=== PATIENT | male | born 1980 | race Caucasian/White ===

== ENCOUNTER 2017-12-05 12:15 | Emergency (ER) | payer SELFPAY ==
[~2017-12-05] VITALS: Ht 180.3 cm; Wt 101.9 kg
[~2017-12-05 12:15] MED LIST: AMOX875 PO; MEDR4PAK3 PO
[2017-12-05 12:20] VITALS: BP 151/78; PULSE 86; RESP 16; TEMP 97.7; O2SAT 97
--- NOTE | 2017-12-05 13:08 | RADRPT ---
EXAM DATE/TIME: 12/05/2017 12:53 [place] COMPARISON: No previous studies available for comparison. INDICATIONS : Left hand 5th digit pain, punched something last night. MEDICAL HISTORY : None. SURGICAL HISTORY : None. ENCOUNTER: Initial ACUITY: 2 days PAIN SCORE: 7/10 LOCATION: Left hand 5th digit FINDINGS: AP, lateral and oblique views left hand were obtained and demonstrate a transverse fracture deformity of the fifth metacarpal neck with mild volar angulation of the distal fracture fragment. There is mi ld overlying soft tissue swelling. No other bony abnormalities are identified. CONCLUSION: Fifth metacarpal fracture. Robert Isbell MD on December 05, 2017 at 13:05 Board Certified Radiologist. This report was verified electronically.
[2017-12-05] MEDS ORDERED: TRAM50 PO (13:26)
--- NOTE | 2017-12-05 13:26 | PD ---
HPI Chief Complaint: Musculoskeletal Complaint Time Seen by Provider: 13:09 Travel History International Travel<30 days: No Contact w/Intl Traveler<30days: No Traveled to known affect area: No History of Present Illness HPI 37-year-old male here with left hand pain after he punched a wall last night. Denies altered sensation or weakness of the hand. Has pain over the fourth and fifth metacarpal and pain with making a tight fist. Symptom severity is moderate. Reports constant aching pain. Worse with palpation of the area and range of motion of the fingers. Slightly alleviated with rest. PFSH Past Medical History Medical History: Denies Significant Hx Social History Alcohol Use: Yes (DAILY) Tobacco Use: No Substance Use: No Allergies-Medications (Allergen,Severity, Reaction): Coded Allergies: No Known Allergies (Verified Adverse Reaction, Unknown, 12/05/17) Reported Meds & Prescriptions Reported Meds & Active Scripts Active Ultram (Tramadol HCl) 50 Mg Tab 50 Mg PO Q6H PRN Review of Systems Except as stated in HPI: all other systems reviewed are Neg General / Constitutional: No: Fever Eyes: No: Visual changes HENT: No: Headaches Cardiovascular: No: Chest Pain or Discomfort Respiratory: No: Shortness of Breath Gastrointestinal: No: Abdominal Pain Genitourinary: No: Dysuria Physical Exam Narrative GENERAL: Alert and well-appearing 37-year-old male SKIN: Warm and dry. HEAD: Normocephalic. EYES: No scleral icterus. No injection or drainage. NECK: Supple RESPIRATORY: No accessory muscle use. GASTROINTESTINAL: nondistended. MUSCULOSKELETAL: No cyanosis. LUE: +TTP dorsal aspect of the hand over the fourth and fifth metacarpal. No obvious deformity. Can freely wiggle all fingers. Normal sensation in all fingers. Brisk cap refill. Data Data Last Documented VS Vital Signs Date Time Temp Pulse Resp B/P (MAP) Pulse Ox O2 Delivery O2 Flow Rate FiO2 12/05/17 12:20 97.7 86 16 151/78 (102) 97 Orders Orders Hand, Complete ([id number]) (12/05/17 ) Splint Or Brace Apply/Monitor (12/05/17 13:15) Mandatory Outpatient Referral (12/05/17 13:27) MDM Medical Decision Making Medical Screen Exam Complete: Yes Emergency Medical Condition: Yes Differential Diagnosis Metacarpal fracture, contusion, sprain Narrative Course 37-year-old male here with left hand pain after punching a wall last night. X- ray shows fracture of the fifth metacarpal. The extremity is neurovascularly intact. ulnar gutter splint was applied by dairy manufacturing technologist. Patient was given mandatory referral for orthopedic/hand surgeon follow-up. Diagnosis Primary Impression: Metacarpal bone fracture Qualified Codes: S62.307A - Unspecified fracture of fifth metacarpal bone, left hand, initial encounter for closed fracture Referrals: Sandro Jung MD,Farhana Soriano MD Hand Surgeon Orthopedist Additional Instructions: Splint must stay in place until follow-up with orthopedic or hand surgeon. You were given a mandatory referral for follow-up. Pain medication as directed. Elevate the extremity Scripts Tramadol (Ultram) 50 Mg Tab 50 MG PO Q6H Y for PAIN, #12 TAB 0 Refills Prov: Jemma Carrera 12/05/17 Disposition: 01 DISCHARGE HOME Condition: Stable Jemma Carrera Dec 05, 2017 13:26
[2017-12-08] MEDS ORDERED: NAPR5CAP PO (08:49)
[2017-12-08] MEDS ORDERED: IBUP200T47 PO (08:49)
== END 2017-12-05 13:44 | disposition home or self-care (01) ==
LOC: PHEFT 12:15
DX: S62.337A Displaced fracture of neck of fifth metacarpal bone, left hand, initial encounter for closed fracture (principal); W22.09XA Striking against other stationary object, initial encounter
CPT/HCPCS: 29125; 73130

== ENCOUNTER → 2017-12-08 | Day surgery (SDC) | payer MEDICAID ==
[~2017-12-08] MED LIST changes: +ACETAMINOPHEN/HYDROcodone 325 MG/5 MG TAB ONE; +ACETAMINOPHEN/HYDROcodone 325 MG/5 MG TAB PO PRN; -AMOX875 PO; +BUPIVACAINE HCL PF 0.5% 30 ML VIAL ONE; +CHLORHEXIDINE GLUCONATE 2 % 1 PACK (2 CLOTHS) TOPICAL PRN; +DEXAMETHASONE SOD PHOS 4 MG/ML VIAL IV ONE; +DO NOT ADM ANY ANTICOAGULANT DRUGS PRN; +IBUP200T47 PO; +LACTATED RINGER'S 1000 ML IV PRN; +LIDOCAINE HCL 1% PF 5 ML SYRINGE OTHER ONE; -MEDR4PAK3 PO; +METOPROLOL TARTRATE 25 MG TAB PO PRN; +MIDAZOLAM HCL 2 MG/2 ML VIAL ONE; +MORPHINE SULFATE 4 MG/ML INJ ONE; +MUPIROCIN 2% OINT 22 GM TUBE ONE; +NAPR5CAP PO; +ONDANSETRON HCL 4 MG/2 ML VIAL IV ONE; +POVIDONE IODINE 5% (ANTISEPSIS KIT) 4 APPLICATIONS EACH NARE PRN; +PROPOFOL 200 MG/20 ML AMP IV ONE; +SODIUM CHLORID 0.9% 500 ML IV PRN; +TRAM50 PO; +ceFAZolin 1,000 MG/NS 100 ML IV SCH
[2017-12-08 11:45] VITALS: BP 148/84; PULSE 61; RESP 20; TEMP 97.5; O2SAT 97
--- NOTE | 2017-12-09 15:05 | PD.OP ---
Operative Report Date of Surgery: December 08, 2017 Preoperative Diagnosis: (1) Fracture, metacarpal, neck Postoperative Diagnosis: (1) Fracture, metacarpal, neck Procedure: Closed reduction percutaneous pinning of left fifth metacarpal neck fracture ( [id number]) Surgeon: Sandro Trimble Railroad Accountant(s): . Operation and Findings: 37-year-old male who presented to clinic with a left volarly angulated fifth metacarpal neck fracture. Risks benefits and alternative treatments were discussed. All questions were answered and the patient expressed understanding. Patient elected to assume the risk of closed reduction and percutaneous pinning of the above fracture. Informed consent was obtained. The surgical site was marked in the preoperative holding bay. Antibiotics were given on-call to the operating room. The patient was taken to the operating room and all pressure points were padded. A surgical timeout was performed. After the smooth induction of general anesthesia, the surgical site was instilled with quarter percent Marcaine with epinephrine. The surgical site was prepped and draped in the usual sterile fashion. Baseline x-rays of the fracture were taken using the mini C arm. Following this a closed reduction was performed. Postreduction films showed excellent fracture reduction and minimal displacement. Two 0.045 K wires were then driven retrograde through the radial and ulnar fifth metacarpal head in a crisscrossing pattern, giving excellent fracture fixation. The surgical site was cleaned. The pins were dressed with mupirocin ointment Xeroform gauze dry gauze fluffs, followed by an appropriately padded ulnar gutter splint keeping the hand in a position of safety. The patient was awoken from anesthesia and arrived stable and doing well to the PACU. All needle sponge and instrument counts were correct 2. Sandro Trimble MD December 09, 2017 15:05
== END | disposition home or self-care (01) ==
LOC: HSDC 08:11
PROVIDERS: ATTEND Student in an Organized Health Care Education/Training Program
DX: S62.337A Displaced fracture of neck of fifth metacarpal bone, left hand, initial encounter for closed fracture (principal)
CPT/HCPCS: 01820; 26608; 76000; J0690; J1100; J2250; J2270; J2405; J3010